=== PATIENT | female | born 1980 | race African-American/Black ===

== ENCOUNTER 2022-08-04 02:58 | Emergency (ER) | payer OTHER, SELFPAY ==
--- NOTE | ~2022-08-04 | XR_ITS ---
Lumbosacral Spine: AP and lateral views Clinical History: Pain Findings: The normal lordotic curve is maintained. The vertebral bodies and posterior elements are i ntact. The intervertebral disc spaces are preserved. The sacroiliac joints are normally outlined. Impression: No significant abnormality. Reviewed, dictated and finalized at [facility]. LATORY AND COMPLIANCE TECHNICIAN Impression: No significant abnormality.
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
--- NOTE | ~2022-08-04 | XR_ITS ---
Thoracic spine: Clinical Indication: Pain AP and lateral views were performed. No fracture is seen. There is normal alignment of the vertebrae. The intervertebral disc spaces appe ar normal. Paravertebral soft tissues appear normal. Impression: No significant abnormalities noted. Reviewed, dictated and finalized at [facility]. GATHERER Impression: No significant abnormalities noted.
--- NOTE | ~2022-08-04 | CT_ITS ---
Noncontrast CT scan of the cervical spine Technique: Multiple contiguous axial [address] images of the cervical spine were obtained and rec onstructed in 2D sagittal and coronal planes on the acquisition scanner. Dose reduction technique was used on this scan by utilizing automated exposure control, adjustment of the mA and/or kV according to patient size. Clinical History: Pain Findings: No fractures or dislocations. There is moderate degenerative disc disease and uncovertebra l degenerative change at C5-C6. No prevertebral soft tissue swelling. Impression: No fracture or subluxation of the cervical spine. Reviewed, dictated and finalized at location . NOMIC SPECIALIST Impression: No fracture or subluxation of the cervical spine.
--- NOTE | ~2022-08-04 | XR_ITS ---
Left Shoulder Technique: AP and scapular Y views were obtained. Clinical History: Pain Findings: No fracture or dislocation is seen. Osseous alignment is anatomic. The glenohumeral and acr omioclavicular joint spaces are preserved. Soft tissues are unremarkable. Impression: Unremarkable left shoulder radiographs. Reviewed, dictated and finalized at [facility]. ANALYST Impression: Unremarkable left shoulder radiographs.
[2022-08-04 03:02] VITALS: BP 186/88; PULSE 87; RESP 16; TEMP 36.7; O2SAT 100
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
[2022-08-04] MEDS: CYCLOBENZAPRINE HCL 10 MG TABLET PO (04:09)
[2022-08-04] MEDS: IBUPROFEN 400 MG TABLET 800 MG PO (04:09)
== END 2022-08-04 04:50 | disposition home or self-care (01) ==
PROVIDERS: Emergency Provider Emergency Medicine
DX: S09.90XA Unspecified injury of head, initial encounter (principal); S02.32XA Fracture of orbital floor, left side, initial encounter for closed fracture; S02.31XA Fracture of orbital floor, right side, initial encounter for closed fracture; S16.1XXA Strain of muscle, fascia and tendon at neck level, initial encounter; S29.012A Strain of muscle and tendon of back wall of thorax, initial encounter; S46.912A Strain of unspecified muscle, fascia and tendon at shoulder and upper arm level, left arm, initial encounter; V43.12XA Car passenger injured in collision with other type car in nontraffic accident, initial encounter
CPT/HCPCS: 70450; 72070; 72100; 72125; 73030; 99284; A9270

== ENCOUNTER 2023-09-07 20:10 | Emergency (ER) | payer OTHER, SELFPAY ==
[2023-09-07 20:24] VITALS: BP 200/80; PULSE 77; RESP 14; TEMP 36.6; O2SAT 100
--- NOTE | 2023-09-07 22:53 | ED.FEMALEGU ---
HPI - Female Genitourinary General Chief complaint: Headache Stated complaint: yeast infection, headache Time Seen by Provider: 09/07/23 22:22 Source: patient Mode of arrival: ambulatory Limitations: no limitations History of Present Illness HPI Narrative: This is a 2-year-old female who presents to the ED with chief complaint of headache for the past couple of days. Reports that headache seems to come and go and is located in the frontal head bilaterally. Denies any injury. Denies worst headache of life. Denies numbness, weakness, vision change. Additional complaints of vaginal itching and burning x2 days. Reports curd-like vaginal discharge. She has had yeast infections in the past and feels like this is the same. Recent course of antibiotics for dental infection. Denies fevers, chills, abdominal pain, nausea, vomiting. Related Data Allergies Allergy/AdvReac Type Severity Reaction Status Date / Time aspirin Allergy Hives Verified 08/04/22 04:08 Penicillins Allergy Anaphylaxis Verified 08/04/22 04:08 Review of Systems Review of Systems: All systems as dictated in HPI Exam Narrative: GENERAL: Well-appearing, well-nourished, and in no acute distress. HEAD: Normocephalic, atraumatic. EYES: PERRLA and EOMI. ENT: Nares clear, no rhinorrhea or epistaxis. Mucous membranes moist. Oropharynx without tonsillar hypertrophy exudate or other lesions. NECK: Supple. No adenopathy or masses. CHEST: No respiratory distress. Clear to auscultation. No wheezes rales or rhonchi HEART: Regular rate and rhythm. No murmur heard. Normal peripheral pulses. ABDOMEN: Soft, nontender, nondistended, normal active bowel sounds. MSK: Normal range of motion. No edema. SKIN: Warm, dry, no rash. NEURO: Alert and oriented x3. No focal deficits. PSYCH: Normal mood and affect. Course Vital Signs Vital signs: Vital Signs Temperature 97.8 F 09/07/23 20:24 Pulse Rate 77 09/07/23 20:24 Respiratory Rate 14 09/07/23 20:24 Blood Pressure 200/80 H 09/07/23 20:24 Pulse Oximetry 100 09/07/23 20:24 Oxygen Delivery Room Air 09/07/23 20:24 Temperature 97.8 F 09/07/23 20:24 Pulse Rate 71 09/08/23 01:15 Respiratory Rate 16 09/08/23 01:15 Blood Pressure 148/74 H 09/08/23 01:15 Pulse Oximetry 100 09/08/23 01:15 Oxygen Delivery Room Air 09/07/23 20:24 MDM - Female Genitourinary MDM Narrative Medical decision making narrative: This is a 42-year-old female who presents to the ED for chief complaint of headache and possible yeast infection. Vitals show elevated blood pressure 200/80 but otherwise normal.. Exam is benign. No meningeal signs. lab work is only remarkable for slight anemia at 9.8. She tells me she has had this in the past. No leukocytosis. CMP is unremarkable as well. She is given headache cocktail here with great improvement. She was also given fluconazole prescription for likely yeast infection after recent antibiotics. Blood pressure reduced after the headache was treated. Advise that she follow up PCP regarding blood pressure and anemia. Prescription for fluconazole given. Pt will be discharged in stable condition. Return precautions given and supportive measures discussed. Pt is understanding and agreeable with plan for discharge and follow-up with PCP. Lab Data 09/07/23 23:08 09/07/23 23:08 Labs: Lab Results 09/07/23 Range/Units 23:08 WBC 6.9 (4.5-10.0) K/mm3 RBC 3.84 L (4.2-5.4) M/mm3 Hgb 9.8 L (12.0-15.0) g/dL Hct 32.4 L (37.0-47.0) % MCV 84.4 (80-100) fl MCH 25.5 L (26-34) pg MCHC 30.2 L (32-36) g/dl RDW 17.8 H (11.5-14.5) % Plt Count 366 (150-375) k/mm3 MPV 9.0 (7.4-10.4) fl Immature Gran % (Auto) 0.4 (0-0.5) % Neut % (Auto) 59.7 (45.5-73.1) % Lymph % (Auto) 29.7 (18.3-44.2) % [place] % (Auto) 7.8 (2.6-8.5) % Eos % (Auto) 2.0 (0-4.4) % Baso % (Auto) 0.4 (0.2-1.2) % Lymph # (Auto)
[2023-09-07] MEDS: SODIUM CHLORIDE 0.9% IV 1,000 ML 999 ML IV CONT (23:10)
[2023-09-07] MEDS: KETOROLAC 15 MG/ML VIAL (*BKC) IV PUSH (23:11)
[2023-09-07 23:12] LABS: Basophils Percent Auto 0.4 % (0.2-1.2); Eosinophils Absolute Auto 0.1 K/mm3 (0-0.3); Hematocrit 32.4 % (37.0-47.0); Hemoglobin 9.8 g/dL (12.0-15.0); Immature Granulocyte Absolute 0.03 K/mm3 (0.00-0.031); Immature Granulocyte Percent A 0.4 % (0-0.5); Lymphocytes Absolute Auto 2.06 K/mm3 (0.9-3.2); Lymphocytes Percent Auto 29.7 % (18.3-44.2); Mean Corpuscular HGB Conc 30.2 g/dl (32-36); Mean Corpuscular Hemoglobin 25.5 pg (26-34); Mean Corpuscular Volume 84.4 fl (80-100); Monocytes Absolute Auto 0.5 K/mm3 (0.1-0.6); Monocytes Percent Auto 7.8 % (2.6-8.5); Neutrophils Absolute Auto 4.1 K/mm3 (1.3-6.7); Neutrophils Percent Auto 59.7 % (45.5-73.1); Platelet Count Result 366 k/mm3 (150-375); Red Blood Count 3.84 M/mm3 (4.2-5.4); Red Cell Distribution Width 17.8 % (11.5-14.5); White Blood Count 6.9 K/mm3 (4.5-10.0)
[2023-09-07] MEDS: diphenhydrAMINE HCl INJ 50 MG/ML VIAL 25 MG IV PUSH (23:12)
[2023-09-07] MEDS: PROCHLORPERAZINE EDISYLATE 10 MG/2 ML VIAL IV PUSH (23:14)
[2023-09-07 23:22] LABS: Alanine Aminotransferase 16 U/L (6-35); Albumin Level 4.1 g/dL (3.5-5.1); Alkaline Phosphatase 137 U/L (38-126); Anion Gap 6 mmol/L (8-16); Aspartate Amino Transferase 25 U/L (14-36); Bilirubin,Total 0.2 mg/dL (0.2-1.3); Blood Urea Nitrogen 18 mg/dL (7-17); Carbon Dioxide 22 mmol/L (22-30); Chloride 109 mmol/L (98-107); Estimated CRCL calculation 71 ml/min; Estimated Glomerular Filt Rate > 60; Glucose 110 mg/dL (65-110); Potassium 3.5 mmol/L (3.4-5.0); Sodium 137 mmol/L (137-145)
[2023-09-07 23:38] VITALS: BP 168/92; PULSE 67; RESP 15; O2SAT 100
[2023-09-07] MEDS: FLUCONAZOLE 150 MG TABLET PO (23:44)
[2023-09-08 01:15] VITALS: BP 148/74; PULSE 71; RESP 16; O2SAT 100
== END 2023-09-08 01:16 | disposition home or self-care (01) ==
PROVIDERS: Emergency Provider Physician Assistant
DX: R51.9 Headache, unspecified (principal); B37.31 Acute candidiasis of vulva and vagina
CPT/HCPCS: 36415; 80053; 85025; 96361; 96374; 96375; 99284; A9270; J0780; J1200; J1885; J7030